=== PATIENT | male | born 1990 | race Hispanic/Latino ===

== ENCOUNTER 2023-09-14 12:16 | Emergency (ER) | payer BC ==
[~2023-09-14] VITALS: Ht 180.3 cm; Wt 106.6 kg
[2023-09-14 13:28] VITALS: BP 138/78; PULSE 76; RESP 16; O2SAT 97
[2023-09-14] MEDS: ACETAMINOPHEN 500 MG TABLET PO ONE (13:56)
[2023-09-14] MEDS: TETANUS/DIPHTHERIA TOXOID [ADULT] 0.5 ML VIAL IM ONE (13:58)
[2023-09-14] MEDS ORDERED: IBUP-2077 PO (14:17)
== END 2023-09-14 15:11 | disposition home or self-care (01) ==
LOC: EDH 12:16
DX: S00.01XA Abrasion of scalp, initial encounter (principal); W01.0XXA Fall on same level from slipping, tripping and stumbling without subsequent striking against object, initial encounter; Y93.89 Activity, other specified; Y92.89 Other specified places as the place of occurrence of the external cause; Y99.8 Other external cause status
CPT/HCPCS: 70450; 90471; 90714